=== PATIENT | male | born 1985 | race African-American/Black ===

== ENCOUNTER 2021-08-22 07:25 | Emergency (ER) | payer SELFPAY ==
[2021-08-22] MEDS ORDERED: Acetaminophen 500 MG TAB ONE (08:57)
[2021-08-22] MEDS ORDERED: Ibuprofen 200 MG TAB ONE (08:57)
== END 2021-08-22 09:00 | disposition home or self-care (01) ==
LOC: CSHERS 07:25
DX: M79.604 Pain in right leg (principal)
CPT/HCPCS: 99283

== ENCOUNTER 2021-09-06 12:37 | Emergency (ER) | payer SELFPAY ==
[2021-09-06 13:16] LABS: Bilirubin Neg (Negative); Blood, Urine Negative (Negative); Clarity Clear (Clear); Glucose, Urine (Dipstick) Normal (Negative); Ketone, Urine Negative (Negative); Leukocyte 100 (Negative); Nitrite Negative (Negative); Protein, Urine (Dipstick) Negative (Neg-Trace); Specific Gravity, Urine 1.005 (1.002-1.036); Urobilinogen Normal mg/dL (Less than 2)
[2021-09-06 13:33] LABS: Bacteria/HPF Rare-Few HPF (None Seen); RBC/HPF 0-3 HPF (0-3)
[2021-09-06] MEDS ORDERED: cefTRIAXone\\ROCEPHIN 500 MG VIAL ONE (14:11)
[2021-09-06] MEDS ORDERED: Lidocaine 1% (PF) 30 ML VIAL ONE (14:11)
[2021-09-08 05:11] LABS: Chlam.trachomatis by PCR,Urine DETECTED (NotDetected)
== END 2021-09-06 14:38 | disposition home or self-care (01) ==
LOC: CSHERS 12:37
DX: N34.2 Other urethritis (principal)
CPT/HCPCS: 81003; 81015; 87491; 87591; 96372; 99283; J0696; J2001

== ENCOUNTER 2022-08-11 09:59 | Emergency (ER) | payer SELFPAY | END 2022-08-11 11:08 | disposition home or self-care (01) | LOC: CSHERS 09:59 | DX: S93.602A Unspecified sprain of left foot, initial encounter (principal); Y04.0XXA Assault by unarmed brawl or fight, initial encounter ==